=== PATIENT | male | born 1970 | race Caucasian/White ===

== ENCOUNTER 2017-02-26 22:07 | Inpatient (IN) | payer MEDICARE ==
[~2017-02-26] VITALS: Ht 175.3 cm; Wt 55.0 kg
[2017-02-26] MEDS ORDERED: LITH300C PO (22:19)
[2017-02-26] MEDS ORDERED: SERO1TAB3 PO (22:19)
[2017-02-26] MEDS ORDERED: INVE156I IM (22:19)
[2017-02-26] MEDS ORDERED: MOM 30ML SUSPENSION UDC PO PRN (23:15)
[2017-02-26] MEDS ORDERED: MAALOX 30 ML SUSP *UDC PO PRN (23:15)
[2017-02-27 00:34] VITALS: BP 131/81
[2017-02-27] MEDS: NICOTINE 21MG/24HR 1 EA TRANSDERMAL TD SCH (08:03)
[2017-02-27] MEDS ORDERED: PALIPERIDONE PALMITATE 234 MG/1.5 ML INJ (INVEGA SUSTENNA)(J2426) IM ONE (15:00)
--- NOTE | 2017-02-27 15:33 | MHHPEPDOC ---
[facility] History & Physical History and Physical DATE OF ADMISSION: Feb 26, 2017 at 23:00 LEGAL STATUS AT ADMISSION: . 9:39 emergency admission CHIEF COMPLAINT: . Worsening auditory hallucinations with commands to hurt himself. No plan. Also, visual hallucinations of 2 women and one man telling him to hurt himself HISTORY OF THE PRESENT ILLNESS: Patient is a 46-year-old male, but has history of schizophrenia versus schizoaffective disorder diagnosed many years ago in [place]. Patient came to [place] 3 months ago from [place] with his girlfriend here; has not been taking medications since then. Patient endorses recent symptoms of psychosis that includes auditory and visual hallucinations. The auditory hallucinations tell him to hurt himself. No specific plan. He endorsed having paranoid delusions. No specific person. Patient endorsed having sometimes racing thoughts, not able to sleep due to the hallucinations. Patient was in treatment in [place], taking Invega Sustenna last time about 3 months ago before moving to [place]. He has a chronic history of mental illness since he was in his early 20's. He was compliant with outpatient treatment and psychotherapy in [place], [place], denied ideas or intentions of Self-harm as he tries not to listen to the voices. Denies alcohol use. However, he smokes marijuana frequently last time 2 weeks ago, but has been smoking for about 15- 20 years. 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 Patient has tried to get connected with outpatient services in the area and was able until recently that he got an appointment at a mental health clinic for March 15. However, his symptoms worsened and he couldn't wait longer in order to get treatment PSYCHIATRIC REVIEW OF SYSTEMS: Affective: . Denied symptoms of depression Anxiety: . Reported moderate anxiety that is triggered by the voices Trauma: . Denied history of trauma Psychosis: . Auditory hallucinations with commands to kill himself last time he heard the voices was this morning Personally: . No history of personality disorders PAST PSYCHIATRIC HISTORY: Prior Psychiatric Disorder: . [facility] in [place], [place]. He had a psychiatrist, psychotherapist and a briefcase sewer last time he was there was about 3 months ago. Patient has history of multiple psychiatric admissions reported. About 12. Last admission was in [place] between September and October 2016 Outpatient Treatment: . As above Suicidal/Self injurious: . Reported overdose on pills 15 years ago Psychotropic Medication History: . Haldol, Cogentin and Prolixin Patient was taking lithium, but he does send think that it was helping ALLERGIES: Please see below. FAMILY PSYCHIATRIC HISTORY: . Reported several members of his family has mental illness, including the mother SOCIAL HISTORY: Patient was born and raised in [place], [place], completed high school and vocational course in electricity. 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 He lives with his girlfriend that is from [place] and he most with her in order to be close to her family about 3 months ago. Reports that they have marital conflicts of the moment, but but she is supportive. He doesn't have other support system than the girlfriend HIS FAMILY LIVES IN [place] AND HE HAS SEVERAL FRIENDS IN [place] SUBSTANCE ABUSE HISTORY: . Chronic marijuana use for years. Last time he smoked was 2 weeks ago PAST MEDICAL/SURGICAL HISTORY: 1. . None 2. . VITAL SIGNS: Temperature , pulse , respiratory rate , blood pressure , pulse oximetry % on room air. MENTAL STATUS EXAMINATION: General appearance: Patient is a 46 years old male that Looks much older than stated age. Fair grooming and hygiene, casually dressed and cooperative Speech: . Fluent and coherent Thought processes: . Mostly linear, circumstantial at times Thought content: . Denied ideas of self-harm or harm to others. No delusions elicited. Denied current auditory or visual hallucinations. Last time he had hallucinations was this morning Abstract reasoning and computation: . [place] reasoning and computation and Description of associations: . None Description of abnormal or psychotic thoughts: . Endorsed episodes of racing and tangential thoughts Judgment: . Fair Insight: . Fair Orientation: . Oriented 3 Recent and remote memory: . Intact Attention span and concentration: . Intact Fund of knowledge: . Average Mood: "Okay." Affect: . Constricted DIAGNOSES: 1. . Chronic paranoid schizophrenia versus schizoaffective disorder 2. . 3. . ASSESSMENT: 46 years old male with chronic history of psychotic disorder, noncompliant with medications for about 3 months since he most from [place] to [place]. It has been difficult for him to get connected to outpatient mental health treatment here. Endorsed worsening auditory and visual hallucinations. The hallucinations tell him to kill himself. No specific plan. Patient doesn't have any intentions of self harm. Patient wants to get back on medication. He was taking Invega Sustenna with improvement of symptoms. Patient will be given 234 mg of Invega Sustenna once and an overdose in 1 week. There was no need to start him in Invega pills as he has been tolerated the medication before PROBLEM LIST: 1. . Chronic symptoms of psychosis, exacerbated by noncompliance of medications 2. . Limited support system 3. . Difficult access to mental health treatment INITIAL TREATMENT PLAN: 1. Patient was admitted on an involuntary legal status 2. Complete history was obtained. 3. With patients permission, family will be contacted and database will be expanded. 4. Patients medication regimen will be reviewed and changed accordingly. 5. Patient will be provided with protected environment. 6. Patient will be treated with individual, group, and milieu therapies. 7. Patient will receive supportive psych-education. 8. Discharge planning will commence immediately. 9. Outpatient follow-up treatment will be strongly recommended. 10. The initial treatment plan will focus initially on: * Symptoms of psychosis. ESTIMATED LENGTH OF STAY: 7-10 days. TIME SPENT COUNSELING AND COORDINATING INITIAL CARE: 50 minutes. Laboratory Data 24[facility] Labs Laboratory Tests 2 02/27/17 06:40: [place] Level < 0.20L Medications Scheduled [place] Carbonate ([place] Carbonate) 300 Mg Cap, 300 MG PO BID, (Reported) NO MED HISTORY PATIENT NON-COMLIANT FOR MONTHS Paliperidone Palmitate (Invega Sustenna) 156 Mg/Ml Inj, 156 MG IM QMONTH, ( Reported) NO MED HISTORY PATIENT NON-COMLIANT FOR MONTHS Quetiapine Fumerate (Seroquel) 25 Mg Tab, 25 MG PO QHS, (Reported) NO MED HISTORY PATIENT NON-COMLIANT FOR MONTHS Allergies Coded Allergies: No Known Allergies (Unverified , 02/26/17) GLENNY PELAEZ MD Feb 27, 2017 15:33
[2017-02-27 18:00] VITALS: BP 131/70
[2017-02-27] MEDS ORDERED: QUEtiapine FUMARATE 100 MG TAB PO SCH (21:00)
[2017-02-27] MEDS: traZODone 50 MG TAB PO PRN (21:01)
[2017-02-28 07:09] VITALS: BP 136/75
[2017-02-28] MEDS: NICOTINE 21MG/24HR 1 EA TRANSDERMAL TD SCH (08:05)
--- NOTE | 2017-02-28 08:16 | HPE ---
DATE OF ADMISSION: 02/26/2017 Please refer to the psychiatric history and evaluation for further details on this admission. This examination and history is intended for medical issues which may need treatment, followup or consultation on this 46-year-old male who looks much older than his stated years. ALLERGIES: No known allergies. PRIMARY CARE PROVIDER: He currently does not have one. SOCIAL HISTORY: He is single. He lives with his girlfriend. He was transferred from [facility]. He has moved to this area less than two months ago. He has not been able to get his medications. He has been off them for approximately 3 months. He had an upcoming appointment on 03/15/2017, but was getting worse and came to the hospital. ETOH - none. Smokes - One pack of cigarettes per day. Recreational drug use - Marijuana, but he has had none for two weeks. PAST MEDICAL HISTORY: 1. Migraines. 2. Schizophrenia. PAST SURGICAL HISTORY: 1. Right knee surgery. HOME MEDICATIONS (which he has not had for 3 months, but he was on): - lithium 300 mg by mouth twice a day - Invega Sustenna 156 mg IM every month - Seroquel 25 mg by mouth at bedtime FAMILY HISTORY: Noncontributory. LABORATORY STUDIES: [place] 0.20. WBC 5.9. Hemoglobin 14.6. Hematocrit 41.5. BUN 11. Creatinine 0.8. Electrolytes normal. TSH normal at 2.35. Toxicology screen was negative. EKG has been ordered for baseline. REVIEW OF SYSTEMS: Ten systems review was done. He had some diarrhea previous two days. He has had none at all today. Ten systems review was unremarkable. He had no complaints. OBJECTIVE: 46-year-old male who looks much older than his stated years. Height 69 inches. Weight 55 kg. Body mass index (BMI) 17.9. Blood pressure 131/70. Pulse 75. Respirations 16. Temperature 98.7. The patient is alert and oriented times three. Pupils equal and react to light. Extraocular movements intact. Cornea and sclera clear. Conjunctiva normal. No facial asymmetry. Pharynx, tongue and gums pink and moist. Poor dentition. Tongue is midline. Neck is supple, without lymphadenopathy. No thyromegaly. No goiter. Carotids 2+, without bruits. Chest clear to auscultation, without wheeze or retraction. Heart is regular. Abdomen benign. Bowel sounds positive. Genitourinary ()/Rectal: Not done. Extremities show equal strength. Full range of motion. No cyanosis, clubbing or edema. Peripheral pulses equal and palpable bilaterally. Skin is warm and dry. IMPRESSION AND PLAN: 1. Psychiatric. Plan per psychiatry. 2. No acute medical issues.
[2017-02-28] MEDS ORDERED: INFLUENZA QUADRIVALENT PF VACCINE 0.5ML SYRINGE (90686) IM ONE (09:00)
--- NOTE | 2017-02-28 14:18 | MHIPNPDOC ---
[facility] Progress Note Progress Note DATE OF SERVICE: 02/28/17 HISTORY: . Worsening auditory hallucinations with commands to hurt himself. No plan. Also, visual hallucinations of 2 women and one man telling him to hurt himself HISTORY OF THE PRESENT ILLNESS: Patient is a 46-year-old male, but has history of schizophrenia versus schizoaffective disorder. Patient endorses recent symptoms of psychosis that includes auditory and visual hallucinations. The auditory hallucinations tell him to hurt himself. No specific plan.Currently denying having auditory hallucinations, however still , endorsed having paranoid ideas regarding her girlfriend. He thinks she said to one of her cousin the way she would kill him. Patient has marital problems with her that got worse since they moved to this area. Patient is not scared about that as he wants to move to live by himself.Theses ideas can be delusional .He will have second dose of invega sustenna next Tuesday and will have meeting with her girlfriend in order to establish a discharge plan . VITAL SIGNS: See below. NEW TEST RESULTS: . CURRENT MEDICATIONS: See below. MENTAL STATUS EXAMINATION: General appearance: Patient is a 46 years old male that Looks much older than stated age. Fair grooming and hygiene, casually dressed and cooperative Speech: . Fluent and coherent Thought processes: . Mostly linear, circumstantial at times Thought content: . Denied ideas of self-harm or harm to others. No delusions elicited. Denied current auditory or visual hallucinations. Last time he had hallucinations was this morning Abstract reasoning and computation: . [place] reasoning and computation and Description of associations: . None Description of abnormal or psychotic thoughts: . Endorsed episodes of racing and tangential thoughts Judgment: . Fair Insight: . Fair Orientation: . Oriented 3 Recent and remote memory: . Intact Attention span and concentration: . Intact Fund of knowledge: . Average Mood: "Okay." Affect: . Constricted DIAGNOSES: 1. .chronic schizophrenia versus schizoaffective disorder 2. .chronic cannabis abuse versus dependence 3. . ASSESSMENT: 46 years old male with history of schizophrenia, schizoaffective disorder that became psychotic in the context of noncompliant with medications. His psychosis symptoms were auditory hallucinations with commands to hurt himself and reported occasional visual hallucinations of 3 people telling him to hurt herself. She denied he denied having command auditory hallucinations. However, he seems to be paranoid and guarded because of paranoid ideas that the girlfriend has a plan to kill him, as his relationship with her as being deteriorating since they moved to [place]. Patient was to move to live by himself. Patient denied any side effects. The first dose of Invega injection and will receive the second dose on Tuesday MANAGEMENT PLAN: . Second dose of Invega on Tuesday. Continue aggressive medications. Family meeting. Supportive therapy,discharge plan TIME SPENT: 25 minutes. Vital Signs Vital Signs Date Time Temp Pulse Resp B/P (MAP) Pulse Ox O2 Delivery O2 Flow Rate FiO2 02/28/17 07:09 96.7 83 18 136/75 (95) Room Air 02/27/17 00:22 97 Current Medications Current Medications Acetaminophen (Tylenol Tab) 650 mg Q6HP PRN PO HEADACHE or DISCOMFORT; Start 02/26/17 at 23:15; Stop 03/28/17 at 23:14 Al Hydrox/Mg Hydrox/Simethicone (Mylanta) 30 ml Q4HP PRN PO HEARTBURN/ INDIGESTION; Start 02/26/17 at 23:15; Stop 03/28/17 at 23:14 Home Med (Med Rec Complete!) ASDIRECTED XX ; Start 02/26/17 at 23:00; Stop 02/26/17 at 23:02; Status DC Magnesium Hydroxide (Milk Of Magnesia) 30 ml DAILYPRN PRN PO CONSTIPATION; Start 02/26/17 at 23:15; Stop 03/28/17 at 23:14 Nicotine (Nicoderm Cq 21mg) 1 patch DAILY TD Last administered on 02/28/17 08: 05; Start 02/27/17 at 09:00; Stop 03/29/17 at 08:59 Quetiapine Fumarate (SEROquel) 100 mg QHS PO ; Start 02/27/17 at 21:00; Stop at 20:59; Status Cancel Trazodone HCl (Desyrel) 50 mg QHSP PRN PO INSOMNIA Last administered on 21:01; Start 02/26/17 at 23:15; Stop 03/28/17 at 23:14 Allergies Coded Allergies: No Known Allergies (Unverified , 02/26/17) GLENNY PELAEZ MD Feb 28, 2017 13:33
[2017-02-28 18:00] VITALS: BP 138/82
[2017-02-28] MEDS: hydrOXYzine 25 MG TAB PO PRN (19:01)
[2017-03-01] MEDS: hydrOXYzine 25 MG TAB PO PRN ×2 (05:16→11:52)
[2017-03-01 06:38] VITALS: BP 127/76
[2017-03-01] MEDS: NICOTINE 21MG/24HR 1 EA TRANSDERMAL TD SCH (08:34)
--- NOTE | 2017-03-01 11:24 | MHIPNPDOC ---
[facility] Progress Note Progress Note DATE OF SERVICE: 03/01/17 HISTORY: . Worsening auditory hallucinations with commands to hurt himself. No plan. Also, visual hallucinations of 2 women and one man telling him to hurt himself HISTORY OF THE PRESENT ILLNESS: Patient is a 46-year-old male, but has history of schizophrenia versus schizoaffective disorder. Patient endorses recent symptoms of psychosis that includes auditory and visual hallucinations. Currently denying having auditory hallucinations, did not elicit paranoid delusions regarding his girlfriend. However thinks he is homeless now as he cant reach his girlfriend. He has been ruminating and getting very anxious thinking about how is going to be living alone, without a car, with difficulty with transportation . Patient has been taking hydroxyzine and participating in groups, getting distracted that helps with his anxiety .He will have second dose of invega sustenna next Tuesday and will have meeting with her girlfriend in order to establish a discharge plan . VITAL SIGNS: See below. NEW TEST RESULTS: . CURRENT MEDICATIONS: See below. MENTAL STATUS EXAMINATION: General appearance: Patient is a 46 years old male that Looks much older than stated age. Fair grooming and hygiene, casually dressed and cooperative Speech: . Fluent and coherent Thought processes: . Mostly linear, circumstantial at times Thought content: . Denied ideas of self-harm or harm to others. No delusions elicited. Denied current auditory or visual hallucinations. Abstract reasoning and computation: . [place] reasoning and computation and Description of associations: . None Description of abnormal or psychotic thoughts: . Endorsed episodes of racing and intrusive thoughts that cause him to be very anxious Judgment: . Fair Insight: . Fair Orientation: . Oriented 3 Recent and remote memory: . Intact Attention span and concentration: . Intact Fund of knowledge: . Average Mood: "Okay." Affect: . full range DIAGNOSES: 1. .chronic schizophrenia versus schizoaffective disorder 2. .chronic cannabis abuse versus dependence 3. . ASSESSMENT: 46 years old male with history of schizophrenia, schizoaffective disorder that became psychotic in the context of noncompliant with medications. His psychosis symptoms were auditory hallucinations with commands to hurt himself and reported occasional visual hallucinations of 3 people telling him to hurt herself. She denied he denied having command auditory hallucinations. However, he seems to be more anxious as he has intrusive thoughts and rumination about living alone and the difficulties that he would face in a place that he doesn't know anyone Patient is taking atarax as needed for anxiety and participating in groups and activities, that helps him . Supportive therapy was given . He will receive the second dose on Tuesday MANAGEMENT PLAN: . Second dose of Invega on Tuesday. Continue rest of current medications. Family meeting. Supportive therapy,discharge plan TIME SPENT: 25 minutes. Vital Signs Vital Signs Date Time Temp Pulse Resp B/P (MAP) Pulse Ox O2 Delivery O2 Flow Rate FiO2 03/01/17 06:38 97.1 89 16 127/76 (93) Room Air 02/27/17 00:22 97 Current Medications Current Medications Acetaminophen (Tylenol Tab) 650 mg Q6HP PRN PO HEADACHE or DISCOMFORT; Start 02/26/17 at 23:15; Stop 03/28/17 at 23:14 Al Hydrox/Mg Hydrox/Simethicone (Mylanta) 30 ml Q4HP PRN PO HEARTBURN/ INDIGESTION; Start 02/26/17 at 23:15; Stop 03/28/17 at 23:14 Home Med (Med Rec Complete!) ASDIRECTED XX ; Start 02/26/17 at 23:00; Stop 02/26/17 at 23:02; Status DC Hydroxyzine HCl (Atarax) 75 mg Q4HP PRN PO ANXIETY/AGITATION Last administered on 03/01/17 05:16; Start 02/28/17 at 19:00; Stop 03/30/17 at 18:59 Magnesium Hydroxide (Milk Of Magnesia) 30 ml DAILYPRN PRN PO CONSTIPATION; Start 02/26/17 at 23:15; Stop 03/28/17 at 23:14 Nicotine (Nicoderm Cq 21mg) 1 patch DAILY TD Last administered on 03/01/17 08 :34; Start 02/27/17 at 09:00; Stop 03/29/17 at 08:59 Quetiapine Fumarate (SEROquel) 100 mg QHS PO ; Start 02/27/17 at 21:00; Stop at 20:59; Status Cancel Trazodone HCl (Desyrel) 50 mg QHSP PRN PO INSOMNIA Last administered on 21:01; Start 02/26/17 at 23:15; Stop 03/28/17 at 23:14 Allergies Coded Allergies: No Known Allergies (Unverified , 02/26/17) GLENNY PELAEZ MD Mar 01, 2017 11:24
[2017-03-01 18:00] VITALS: BP 118/73
[2017-03-01] MEDS: traZODone 50 MG TAB PO PRN (21:22)
[2017-03-02 06:44] VITALS: BP 118/84
[2017-03-02] MEDS: NICOTINE 21MG/24HR 1 EA TRANSDERMAL TD SCH ×2 (09:00→14:30)
--- NOTE | 2017-03-02 12:03 | MHIPNPDOC ---
[facility] Progress Note Progress Note DATE OF SERVICE: 03/02/17 HISTORY: . Worsening auditory hallucinations with commands to hurt himself. No plan. Also, visual hallucinations of 2 women and one man telling him to hurt himself HISTORY OF THE PRESENT ILLNESS: Patient is a 46-year-old male, but has history of schizophrenia versus schizoaffective disorder. Patient endorsed recent symptoms of psychosis that includes auditory and visual hallucinations. Currently denying having auditory hallucinations, did not elicit paranoid delusions regarding his girlfriend. His anxiety symptoms are better after talking with girlfriend that said to him that "everything is in his mind ".Patient can return back home with her and he wants to. . Patient has been taking hydroxyzine and participating in groups .He will have second dose of invega sustenna on Tuesday and will have meeting with her girlfriend in order to establish a discharge plan . VITAL SIGNS: See below. NEW TEST RESULTS: . CURRENT MEDICATIONS: See below. MENTAL STATUS EXAMINATION: General appearance: Patient is a 46 years old male that Looks much older than stated age. Fair grooming and hygiene, casually dressed and cooperative Speech: . Fluent and coherent Thought processes: . Mostly linear, circumstantial at times Thought content: . Denied ideas of self-harm or harm to others. No delusions elicited. Denied current auditory or visual hallucinations. Abstract reasoning and computation: . [place] reasoning and computation and Description of associations: . None Description of abnormal or psychotic thoughts: . Endorsed episodes of racing and intrusive thoughts that cause him to be very anxious Judgment: . Fair Insight: . Fair Orientation: . Oriented 3 Recent and remote memory: . Intact Attention span and concentration: . Intact Fund of knowledge: . Average Mood: "Okay." Affect: . full range DIAGNOSES: 1. .chronic schizophrenia versus schizoaffective disorder 2. .chronic cannabis abuse versus dependence 3. . ASSESSMENT: 46 years old male with history of schizophrenia, schizoaffective disorder that became psychotic in the context of noncompliant with medications. His psychosis symptoms were auditory hallucinations with commands to hurt himself and reported occasional visual hallucinations of 3 people telling him to hurt herself. He denied having command auditory hallucinations. Patient is taking atarax as needed for anxiety and participating in groups and activities, that helps him . Supportive therapy was given . He will receive the second dose on Tuesday MANAGEMENT PLAN: . Second dose of Invega on Tuesday. Continue rest of current medications. Family meeting. Supportive therapy,discharge plan TIME SPENT: 25 minutes. Vital Signs Vital Signs Date Time Temp Pulse Resp B/P (MAP) Pulse Ox O2 Delivery O2 Flow Rate FiO2 03/02/17 06:44 99.1 79 18 118/84 (95) 03/01/17 06:38 Room Air 02/27/17 00:22 97 Current Medications Current Medications Acetaminophen (Tylenol Tab) 650 mg Q6HP PRN PO HEADACHE or DISCOMFORT; Start 02/26/17 at 23:15; Stop 03/28/17 at 23:14 Al Hydrox/Mg Hydrox/Simethicone (Mylanta) 30 ml Q4HP PRN PO HEARTBURN/ INDIGESTION; Start 02/26/17 at 23:15; Stop 03/28/17 at 23:14 Home Med (Med Rec Complete!) ASDIRECTED XX ; Start 02/26/17 at 23:00; Stop 02/26/17 at 23:02; Status DC Hydroxyzine HCl (Atarax) 75 mg Q4HP PRN PO ANXIETY/AGITATION Last administered on 03/01/17 11:52; Start 02/28/17 at 19:00; Stop 03/30/17 at 18:59 Magnesium Hydroxide (Milk Of Magnesia) 30 ml DAILYPRN PRN PO CONSTIPATION; Start 02/26/17 at 23:15; Stop 03/28/17 at 23:14 Nicotine (Nicoderm Cq 21mg) 1 patch DAILY TD Last administered on 03/01/17 08 :34; Start 02/27/17 at 09:00; Stop 03/29/17 at 08:59 Quetiapine Fumarate (SEROquel) 100 mg QHS PO ; Start 02/27/17 at 21:00; Stop at 20:59; Status Cancel Trazodone HCl (Desyrel) 50 mg QHSP PRN PO INSOMNIA Last administered on 21:22; Start 02/26/17 at 23:15; Stop 03/28/17 at 23:14 Allergies Coded Allergies: No Known Allergies (Unverified , 02/26/17) GLENNY PELAEZ MD Mar 02, 2017 12:03
[2017-03-02] MEDS: hydrOXYzine 25 MG TAB PO PRN (16:57)
[2017-03-02 18:00] VITALS: BP 124/88
[2017-03-02] MEDS: traZODone 50 MG TAB PO PRN (21:30)
[2017-03-03 06:30] VITALS: BP 118/70
[2017-03-03] MEDS: hydrOXYzine 25 MG TAB PO PRN ×2 (09:41→19:51)
--- NOTE | 2017-03-03 10:24 | MHIPNPDOC ---
[facility] Progress Note Progress Note DATE OF SERVICE: 03/03/17 HISTORY: . CC:Worsening auditory hallucinations with commands to hurt himself. No plan. Also, visual hallucinations of 2 women and one man telling him to hurt himself HISTORY OF THE PRESENT ILLNESS: Patient is a 46-year-old male, but has history of schizophrenia versus schizoaffective disorder. Patient endorsed recent symptoms of psychosis that includes auditory and visual hallucinations. Currently denying having auditory hallucinations, did not elicit paranoid delusions regarding his girlfriend. His anxiety symptoms are better . Patient has been taking hydroxyzine and participating in groups .He will have second dose of invega sustenna tomorrow and will begin discharge plan. VITAL SIGNS: See below. NEW TEST RESULTS: . CURRENT MEDICATIONS: See below. MENTAL STATUS EXAMINATION: General appearance: Patient is a 46 years old male that Looks much older than stated age. Fair grooming and hygiene, casually dressed and cooperative Speech: . Fluent and coherent Thought processes: . Mostly linear, circumstantial at times Thought content: . Denied ideas of self-harm or harm to others. No delusions elicited. Denied current auditory or visual hallucinations. Abstract reasoning and computation: . [place] reasoning and computation and Description of associations: . None Description of abnormal or psychotic thoughts: . Endorsed episodes of racing and intrusive thoughts that cause him to be very anxious Judgment: . Fair Insight: . Fair Orientation: . Oriented 3 Recent and remote memory: . Intact Attention span and concentration: . Intact Fund of knowledge: . Average Mood: "good." Affect: . full range DIAGNOSES: 1. .chronic schizophrenia versus schizoaffective disorder 2. .chronic cannabis abuse versus dependence 3. . ASSESSMENT: 46 years old male with history of schizophrenia, schizoaffective disorder that became psychotic in the context of noncompliant with medications. His psychosis symptoms were auditory hallucinations with commands to hurt himself and reported occasional visual hallucinations of 3 people telling him to hurt herself. He denied having command auditory hallucinations. Patient is taking atarax as needed for anxiety and participating in groups and activities, that helps him . Supportive therapy was given . He will receive the second dose tomorrow MANAGEMENT PLAN: . Second dose of Invega tomorrow. Continue rest of current medications. Family meeting. Supportive therapy,discharge plan TIME SPENT: 25 minutes. Vital Signs Vital Signs Date Time Temp Pulse Resp B/P (MAP) Pulse Ox O2 Delivery O2 Flow Rate FiO2 03/03/17 06:30 97.2 75 18 118/70 (86) 03/01/17 06:38 Room Air 02/27/17 00:22 97 Current Medications Current Medications Acetaminophen (Tylenol Tab) 650 mg Q6HP PRN PO HEADACHE or DISCOMFORT; Start 02/26/17 at 23:15; Stop 03/28/17 at 23:14 Al Hydrox/Mg Hydrox/Simethicone (Mylanta) 30 ml Q4HP PRN PO HEARTBURN/ INDIGESTION; Start 02/26/17 at 23:15; Stop 03/28/17 at 23:14 Home Med (Med Rec Complete!) ASDIRECTED XX ; Start 02/26/17 at 23:00; Stop 02/26/17 at 23:02; Status DC Hydroxyzine HCl (Atarax) 75 mg Q4HP PRN PO ANXIETY/AGITATION Last administered on 03/03/17 09:41; Start 02/28/17 at 19:00; Stop 03/30/17 at 18:59 Magnesium Hydroxide (Milk Of Magnesia) 30 ml DAILYPRN PRN PO CONSTIPATION; Start 02/26/17 at 23:15; Stop 03/28/17 at 23:14 Nicotine (Nicoderm Cq 21mg) 1 patch DAILY TD Last administered on 03/02/17 14 :30; Start 02/27/17 at 09:00; Stop 03/29/17 at 08:59 Quetiapine Fumarate (SEROquel) 100 mg QHS PO ; Start 02/27/17 at 21:00; Stop at 20:59; Status Cancel Trazodone HCl (Desyrel) 50 mg QHSP PRN PO INSOMNIA Last administered on 21:30; Start 02/26/17 at 23:15; Stop 03/28/17 at 23:14 Allergies Coded Allergies: No Known Allergies (Unverified , 02/26/17) GLENNY PELAEZ MD Mar 03, 2017 10:24
[2017-03-03] MEDS: NICOTINE 21MG/24HR 1 EA TRANSDERMAL TD SCH (14:52)
[2017-03-03 18:38] VITALS: BP 128/86
[2017-03-03] MEDS: traZODone 50 MG TAB PO PRN (22:18)
[2017-03-04 06:51] VITALS: BP 117/84
[2017-03-04] MEDS: NICOTINE 21MG/24HR 1 EA TRANSDERMAL TD SCH (08:19)
--- NOTE | 2017-03-04 10:27 | MHIPNPDOC ---
[facility] Progress Note Progress Note DATE OF SERVICE: 03/04/17 HISTORY: . CC:Worsening auditory hallucinations with commands to hurt himself. No plan. Also, visual hallucinations of 2 women and one man telling him to hurt himself HISTORY OF THE PRESENT ILLNESS: Patient is a 46-year-old male, has history of schizophrenia versus schizoaffective disorder. Patient endorsed recent symptoms of psychosis that includes auditory and visual hallucinations. Currently denying having auditory hallucinations, did not elicit paranoid delusions regarding his girlfriend. His anxiety symptoms are better . Patient has been taking hydroxyzine and participating in groups .He will have second dose of invega sustenna today and will begin discharge plan. His symptoms of psychosis have improved. VITAL SIGNS: See below. NEW TEST RESULTS: . CURRENT MEDICATIONS: See below. MENTAL STATUS EXAMINATION: General appearance: Patient is a 46 years old male that Looks much older than stated age. Fair grooming and hygiene, casually dressed and cooperative Speech: . Fluent and coherent Thought processes: . Mostly linear, circumstantial at times Thought content: . Denied ideas of self-harm or harm to others. No delusions elicited. Denied current auditory or visual hallucinations. Abstract reasoning and computation: . [place] reasoning and computation and Description of associations: . None Description of abnormal or psychotic thoughts: . Endorsed episodes of racing and intrusive thoughts that cause him to be very anxious Judgment: . Fair Insight: . Fair Orientation: . Oriented 3 Recent and remote memory: . Intact Attention span and concentration: . Intact Fund of knowledge: . Average Mood: "good." Affect: . full range DIAGNOSES: 1. .chronic schizophrenia versus schizoaffective disorder 2. .chronic cannabis abuse versus dependence 3. . ASSESSMENT: 46 years old male with history of schizophrenia, schizoaffective disorder that became psychotic in the context of noncompliant with medications. His psychosis symptoms were auditory hallucinations with commands to hurt himself and reported occasional visual hallucinations of 3 people telling him to hurt herself. He denied having command auditory hallucinations; improvement of symptoms of psychosis. Patient is taking atarax as needed for anxiety and participating in groups and activities, that helps him . Supportive therapy was given . He will receive the second dose -116 mg of invega sustenna today, discharge plan for next week MANAGEMENT PLAN: . Second dose of Invega today. Continue rest of current medications. Family meeting. Supportive therapy,discharge plan TIME SPENT: 25 minutes. Vital Signs Vital Signs Date Time Temp Pulse Resp B/P (MAP) Pulse Ox O2 Delivery O2 Flow Rate FiO2 03/04/17 06:51 97.7 64 16 117/84 (95) 03/01/17 06:38 Room Air 02/27/17 00:22 97 Current Medications Current Medications Acetaminophen (Tylenol Tab) 650 mg Q6HP PRN PO HEADACHE or DISCOMFORT; Start 02/26/17 at 23:15; Stop 03/28/17 at 23:14 Al Hydrox/Mg Hydrox/Simethicone (Mylanta) 30 ml Q4HP PRN PO HEARTBURN/ INDIGESTION; Start 02/26/17 at 23:15; Stop 03/28/17 at 23:14 Home Med (Med Rec Complete!) ASDIRECTED XX ; Start 02/26/17 at 23:00; Stop 02/26/17 at 23:02; Status DC Hydroxyzine HCl (Atarax) 75 mg Q4HP PRN PO ANXIETY/AGITATION Last administered on 03/03/17 19:51; Start 02/28/17 at 19:00; Stop 03/30/17 at 18:59 Magnesium Hydroxide (Milk Of Magnesia) 30 ml DAILYPRN PRN PO CONSTIPATION; Start 02/26/17 at 23:15; Stop 03/28/17 at 23:14 Nicotine (Nicoderm Cq 21mg) 1 patch DAILY TD Last administered on 03/04/17 08 :19; Start 02/27/17 at 09:00; Stop 03/29/17 at 08:59 Quetiapine Fumarate (SEROquel) 100 mg QHS PO ; Start 02/27/17 at 21:00; Stop at 20:59; Status Cancel Trazodone HCl (Desyrel) 50 mg QHSP PRN PO INSOMNIA Last administered on 22:18; Start 02/26/17 at 23:15; Stop 03/28/17 at 23:14 Allergies Coded Allergies: No Known Allergies (Unverified , 02/26/17) GLENNY PELAEZ MD Mar 04, 2017 10:27
[2017-03-04] MEDS ORDERED: PALIPERIDONE PALMITATE 156 MG/1ML INJ(INVEGA SUSTENNA)(J2426) IM ONE (11:00)
[2017-03-04 18:00] VITALS: BP 132/88
[2017-03-04] MEDS: traZODone 50 MG TAB PO PRN (22:23)
[2017-03-05 06:50] VITALS: BP 132/87
[2017-03-05] MEDS: NICOTINE 21MG/24HR 1 EA TRANSDERMAL TD SCH (08:29)
[2017-03-05] MEDS: hydrOXYzine 25 MG TAB PO PRN (13:18)
[2017-03-05] MEDS: ACETAMINOPHEN TAB 650MG DOSE (2X325MG) PO PRN ×2 (15:32→22:08)
[2017-03-05 18:00] VITALS: BP 119/70
[2017-03-05] MEDS: traZODone 50 MG TAB PO PRN (22:07)
[2017-03-06 06:46] VITALS: BP 132/90
[2017-03-06] MEDS: NICOTINE 21MG/24HR 1 EA TRANSDERMAL TD SCH (08:53)
[2017-03-06] MEDS: hydrOXYzine 25 MG TAB PO PRN (15:31)
[2017-03-06 18:00] VITALS: BP 110/60
[2017-03-06] MEDS: ACETAMINOPHEN TAB 650MG DOSE (2X325MG) PO PRN (19:52)
[2017-03-07 06:29] VITALS: BP 136/95
[2017-03-07] MEDS: NICOTINE 21MG/24HR 1 EA TRANSDERMAL TD SCH (08:05)
[2017-03-07 18:00] VITALS: BP 122/75
--- NOTE | 2017-03-07 18:47 | IPN ---
DATE: 03/07/2017 HISTORY: A 46-year-old male with a history of schizophrenia versus schizoaffective disorder who moved to [place] three months ago. The patient has not been taking medication since then. The patient came to the emergency room with auditory and visual hallucinations and paranoid delusions. The patient was treated in [place] with Invega Sustenna which was very effective as per the patient's report. The patient also reports intermittent use of marijuana. The patient has been unable to connect with psychiatric outpatient therapist in the state of [place]. The patient was started on Invega Sustenna by mouth on admission to our unit. MEDICATIONS: - Invega Sustenna 234 mg received on 02/27/2017 - trazodone 50 mg by mouth at bedtime as needed for insomnia During the interview today, the patient reports improvement. The patient's auditory and visual hallucinations have decreased. The patient still can hear the voice telling him, "shoot yourself on the head," and "your are not worthy." The patient also reports his paranoia is improving and is less scared. The patient is denying side effects from the medication. MENTAL STATUS EXAMINATION: The patient is dressed in [facility]. The patient is cooperative during the interview. The patient has fair eye contact. Speech is poor. Mood is anxious. Affect is restricted. As above, the patient continues with auditory and visual hallucinations and paranoid delusions. Memory is fair. The patient is able to contract for safety during the interview and denies suicidal or homicidal ideation. Insight and judgment is limited. ASSESSMENT: Paranoid schizophrenia. PLAN: 1. Continue with Invega Sustenna intramuscular (IM). 2. Continue close observation. 3. Continue individual and group therapy.
[2017-03-07] MEDS: ACETAMINOPHEN TAB 650MG DOSE (2X325MG) PO PRN (20:29)
[2017-03-07] MEDS ORDERED: BENZOCAINE 7.5 % LIQ (BABY ORAJEL) MT PRN (21:00)
[2017-03-07] MEDS ORDERED: IBUPROFEN 600 MG TAB PO ONE (21:00)
[2017-03-08 06:38] VITALS: BP 113/87
[2017-03-08] MEDS: ACETAMINOPHEN TAB 650MG DOSE (2X325MG) PO PRN (08:09)
[2017-03-08] MEDS: NICOTINE 21MG/24HR 1 EA TRANSDERMAL TD SCH (08:09)
[2017-03-08] MEDS ORDERED: HYDR-3363 PO (09:52)
[2017-03-08] MEDS ORDERED: TRAZO50TA PO (09:52)
--- NOTE | 2017-03-08 17:30 | MHDS ---
DATE OF ADMISSION: 02/26/2017 DATE OF DISCHARGE: 03/08/2017 LEGAL STATUS AT ADMISSION: 9.39 legal status. HISTORY OF PRESENT ILLNESS: The following information is according to the initial evaluation of Dr. Moon, his progress note, and my progress note. On admission, Dr. Moon wrote patient is a 46-year-old male with history of schizophrenia versus schizoaffective disorder diagnosed many years ago in [place]. Patient came to [place] three months ago from [place] with his girlfriend, has not been taking medications since then. Patient endorsed recent symptoms of psychosis that includes auditory and visual hallucinations. The auditory hallucinations tell him to hurt himself, no specific plan. He endorsed having paranoid delusions, no specific person. Patient endorsed having sometimes racing thoughts, not able to sleep due to the hallucinations. Patient was in treatment in [place], taking Invega Sustenna, last time about 3 months ago before moving to [place]. He has a chronic history of mental illness since he was in his early 20s. He was compliant with outpatient treatment and psychotherapy in [place], [place]. Denied ideas or intentions to self-harm as he tries not to listen to the voices. Denies alcohol use. However, he smokes marijuana frequently, the last time 2 weeks ago, but has been smoking for about 15-20 years. 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 Patient has tried to get connected with the outpatient services in the area and was unable, until recently when he got an appointment at the mental health clinic for 03/15/2017. However, his symptoms worsened and he could not wait longer in order to get treatment. LABORATORY DATA AT ADMISSION: No lab work other than lithium level that was below 0.20 were drawn. HOSPITAL COURSE: Patient was admitted under the care of Dr. Moon. He was started on Invega Sustenna 234 mg intramuscular (IM) on 02/27/2017. He denied side effect. The medication was effective. He received a dosage of Invega Sustenna 156 mg on 03/04/2017. Again, the medication continued to be effective. He denied side effect. His auditory and visual hallucinations and paranoid delusions slowly decreased and finally disappeared completely before discharge. At the moment of discharge, patient is in a stable condition with no auditory or visual hallucinations, delusions, suicidal or homicidal ideations. Patient is motivated to continue his treatment and followup appointments on outpatient basis. MENTAL STATUS EXAMINATION AT DISCHARGE: Patient is dressed in [facility]. Patient is calm and cooperative. His speech is clear, coherent, with normal rate and is spontaneous. Patient has good eye contact. Patient is euthymic. Affect is appropriate and congruent with mood. Patient is oriented to time, place, person, and situation. Maintains attention and concentration correctly. Instant recall, recent and remote memory are intact. Thought processes are coherent, logical, and goal-directed. Patient does not have auditory or visual hallucinations. Patient does not have paranoid, persecutory, somatic, grandiose, or religions delusions. Patient is denying suicidal or homicidal ideation and contracts for safety. Judgment and insight are fair. DISCHARGE DIAGNOSES: AXIS I: Paranoid schizophrenia. Marijuana abuse. AXIS II: Deferred. AXIS III: None acute. CONDITION AT DISCHARGE: Stable. No suicidal or homicidal ideation. No auditory or visual hallucinations. No delusions. INSTRUCTIONS TO THE PATIENT: Patient is to continue taking his medications as prescribed and followup appointments. He is advised to maintain absolute sobriety from drugs and alcohol. Patient has scheduled appointment for individual psychotherapy, medication management, and primary care physician.
== END 2017-03-08 12:45 | disposition home or self-care (01) | DRG 885 ==
LOC: M ED 22:07 → M ED INP 23:00 → M PSY 02-27 00:28
PROVIDERS: ADMIT Psychiatry & Neurology Psychiatry; ATTEND Psychiatry & Neurology Psychiatry
DX: F20.0 Paranoid schizophrenia (principal); F12.10 Cannabis abuse, uncomplicated; Z91.14 Patient's other noncompliance with medication regimen; F17.210 Nicotine dependence, cigarettes, uncomplicated